=== PATIENT | female | born 1950 | race Caucasian/White ===

== ENCOUNTER 2022-03-23 21:43 | Inpatient (IN) ==
[2022-03-23] MEDS ORDERED: Aspirin 81 MG TAB.CHEW PO ONE (21:58)
[2022-03-23] MEDS ORDERED: *HR* Ticagrelor 90 MG TABLET PO ONE (22:01)
[2022-03-23] MEDS ORDERED: *HR* Heparin 5,000 UNIT/ML VIAL IVP ONE (22:02)
[2022-03-23 22:12] LABS: Basophils % 0.3 %; Eosinophils # 0.2 K/mcL (0.0-0.6); Eosinophils % 1.9 %; Hematocrit 36.7 % (35.3-44.9); Hemoglobin 11.8 g/dL (11.5-15.4); Immature Granulocytes % 0.4 % (0-4); Lymphocytes # 1.6 K/mcL (0.6-4.6); Lymphocytes % 15.6 %; Mean Corpuscular HGB Conc 32.2 g/dL (31.6-35.5); Mean Corpuscular Hemoglobin 29.8 pg (28.0-33.3); Mean Corpuscular Volume 92.7 fL (83.0-100.0); Mean Platelet Volume 8.7 fL (9.4-12.4); Monocytes # 0.9 K/mcL (0.0-1.3); Monocytes % 8.7 %; Neutrophils # 7.6 K/mcL (1.6-8.9); Platelet Count 372 K/mcL (140-400); Red Blood Count 3.96 M/mcL (3.82-4.97); Red Cell Distribution Width 13.3 % (11.5-14.5); Segmented Neutrophils % 73.1 %; White Blood Count 10.4 K/mcL (4.3-11.1)
[2022-03-23 22:19] LABS: INR 1.1; Prothrombin Time 12.8 Seconds (9.4-12.1)
[2022-03-23] MEDS ORDERED: *HR* Heparin 10,000 UNIT/10 ML VIAL ONE ×2 (22:21→23:01)
[2022-03-23] MEDS ORDERED: ISOVUE-370 200 ML INFUS..BTL ONE (22:21)
[2022-03-23] MEDS ORDERED: Nitroglycerin 1,000 MCG/5 ML VIAL IV ONE (22:21)
[2022-03-23] MEDS ORDERED: 0.9 % Sodium Chloride 2,000 ML ONE (22:21)
[2022-03-23] MEDS ORDERED: Heparin 1,000 UNITS/500 mL 1,000 ML ONE (22:21)
[2022-03-23 22:23] LABS: Heparin anti-factor XA UFH < 0.04 IU/mL (0.30-0.70)
[2022-03-23] MEDS ORDERED: *HR* FentaNYL (PF) 100 MCG/2 ML VIAL ONE ×2 (22:35→23:10)
[2022-03-23] MEDS ORDERED: *HR* Midazolam HCl 2 MG/2 ML VIAL ONE ×2 (22:35→23:11)
[2022-03-23 23:01] LABS: Alanine Aminotransferase 13 Units/L (7-52); Albumin 3.5 g/dL (3.5-5.7); Albumin/Globulin Ratio 1.1 (1.1-2.2); Alkaline Phosphatase 73 Units/L (34-104); Aspartate Amino Transferase 46 Units/L (13-39); BUN/Creatinine Ratio 22 (6-26); Bilirubin,Direct 0.1 mg/dL (0.0-0.2); Bilirubin,Indirect 0.3 mg/dL (0.0-1.0); Bilirubin,Total 0.4 mg/dL (0.3-1.0); Blood Urea Nitrogen 13 mg/dL (8-23); Calcium 8.8 mg/dL (8.6-10.3); Carbon Dioxide 26 mEq/L (23-29); Chloride 103 mEq/L (98-107); Globulin 3.2 g/dL (2.4-3.5); Glucose 120 mg/dL (70-105); Magnesium 1.8 mg/dL (1.6-2.6); Osmolality,Calculated 281 (280-300); Potassium 4.3 mEq/L (3.5-5.1); Sodium 135 mEq/L (136-145); Total Protein 6.7 g/dL (6.4-8.9); Troponin I 2.86 ng/mL (< 0.04); eGFR For African Americans > 60 (> 60); eGFR For Non-African Americans > 60 (> 60)
[2022-03-23] MEDS ORDERED: Perflutren Lipid Microsphere 1.3 ML in 0.9 % Sodium Chloride 8.7 ML IVP PRN (23:44)
[2022-03-24] MEDS ORDERED: *HR* HYDROcodone/Acet 7.5/325 mg TABLET PO PRN (00:01)
[2022-03-24] MEDS ORDERED: Morphine Sulfate 2 MG/ML SYRINGE IVP PRN (00:02)
[2022-03-24] MEDS ORDERED: *HR* OxyCODONE Immed Rel 5 MG TABLET PO PRN (00:05)
[2022-03-24] MEDS: Morphine Sulfate 2 MG/ML SYRINGE IVP PRN ×3 (00:37→18:40)
[2022-03-24 03:40] LABS: Basophils % 0.2 %; Eosinophils # 0.1 K/mcL (0.0-0.6); Eosinophils % 0.6 %; Hematocrit 32.7 % (35.3-44.9); Hemoglobin 10.5 g/dL (11.5-15.4); Immature Granulocytes % 0.3 % (0-4); Lymphocytes % 10.6 %; Mean Corpuscular HGB Conc 32.1 g/dL (31.6-35.5); Mean Corpuscular Hemoglobin 29.4 pg (28.0-33.3); Mean Corpuscular Volume 91.6 fL (83.0-100.0); Mean Platelet Volume 8.6 fL (9.4-12.4); Monocytes # 0.8 K/mcL (0.0-1.3); Monocytes % 8.7 %; Neutrophils # 7.7 K/mcL (1.6-8.9); Platelet Count 322 K/mcL (140-400); Red Blood Count 3.57 M/mcL (3.82-4.97); Red Cell Distribution Width 13.3 % (11.5-14.5); Segmented Neutrophils % 79.6 %; White Blood Count 9.6 K/mcL (4.3-11.1)
[2022-03-24 03:53] LABS: BUN/Creatinine Ratio 22 (6-26); Blood Urea Nitrogen 10 mg/dL (8-23); Calcium 8.3 mg/dL (8.6-10.3); Carbon Dioxide 25 mEq/L (23-29); Chloride 103 mEq/L (98-107); Chol/HDL Ratio 2.3 (0-4.9); Cholesterol 120 mg/dL (< 200); Glucose 129 mg/dL (70-105); HDL Cholesterol 53 mg/dL (40-59); LDL Cholesterol,Calculated 53 mg/dL (< 100); Osmolality,Calculated 279 (280-300); Sodium 134 mEq/L (136-145); Triglycerides 72 mg/dL (< 150); eGFR For African Americans > 60 (> 60); eGFR For Non-African Americans > 60 (> 60)
[2022-03-24] MEDS ORDERED: *HR* HYDROmorphone (PF) 1 MG/ML SYRINGE IVP ONE (05:24)
[2022-03-24] MEDS: Metoprolol XL (24 HR) Succ 50 MG TAB.ER.24H PO SCH (07:45)
[2022-03-24] MEDS: Aspirin 81 MG TAB.CHEW PO SCH (07:45)
[2022-03-24] MEDS: *HR* OxyCODONE Immed Rel 5 MG TABLET PO PRN ×3 (07:46→20:22)
[2022-03-24] MEDS: *HR* Ticagrelor 90 MG TABLET PO SCH ×2 (07:46→20:23)
[2022-03-24] MEDS ORDERED: Nitroglycerin 0.4 MG TAB.SUBL SL PRN (07:59)
[2022-03-24] MEDS: ARIPiprazole 5 MG TABLET PO SCH (10:33)
[2022-03-24] MEDS: Budesonide/Formoterol 80/4.5 1 PUFF INH IH SCH (11:30)
[2022-03-24] MEDS ORDERED: Melatonin 3 MG TABLET PO SCH (21:00)
[2022-03-25] MEDS: *HR* OxyCODONE Immed Rel 5 MG TABLET PO PRN ×2 (02:24→09:44)
[2022-03-25] MEDS: Morphine Sulfate 2 MG/ML SYRINGE IVP PRN (04:27)
[2022-03-25] MEDS: Budesonide/Formoterol 80/4.5 1 PUFF INH IH SCH (08:20)
[2022-03-25] MEDS ORDERED: ALPRAZolam 0.5 MG TABLET PO ONE (09:23)
[2022-03-25] MEDS: Metoprolol XL (24 HR) Succ 50 MG TAB.ER.24H PO SCH (09:44)
[2022-03-25] MEDS: ARIPiprazole 5 MG TABLET PO SCH (09:44)
[2022-03-25] MEDS: Aspirin 81 MG TAB.CHEW PO SCH (09:44)
[2022-03-25] MEDS: *HR* Ticagrelor 90 MG TABLET PO SCH (09:44)
[2022-03-25] MEDS ORDERED: Morphine Sulfate 2 MG/ML SYRINGE IVP PRN (10:56)
[2022-03-25] MEDS ORDERED: *HR* OxyCODONE Immed Rel 5 MG TABLET PO PRN (10:56)
[2022-03-25] MEDS ORDERED: Nitroglycerin 0.4 MG TAB.SUBL SL PRN (10:56)
[2022-03-25] MEDS ORDERED: Metoprolol XL (24 HR) Succ 25 MG TAB.ER.24H PO ONE (14:45)
[2022-03-25] MEDS ORDERED: ALPRAZolam 0.5 MG TABLET PO PRN (17:00)
[2022-03-25] MEDS: ALPRAZolam 0.5 MG TABLET PO PRN (20:51)
[2022-03-25] MEDS: Apixaban 5 MG TABLET PO SCH (20:52)
[2022-03-25] MEDS ORDERED: *HR* Ticagrelor 90 MG TABLET PO SCH ×2 (21:00)
[2022-03-25] MEDS ORDERED: Melatonin 3 MG TABLET PO SCH (21:00)
[2022-03-26] MEDS: Apixaban 5 MG TABLET PO SCH (08:39)
[2022-03-26] MEDS: ALPRAZolam 0.5 MG TABLET PO PRN (08:43)
[2022-03-26] MEDS ORDERED: ARIPiprazole 5 MG TABLET PO SCH (09:00)
[2022-03-26] MEDS ORDERED: Metoprolol XL (24 HR) Succ 50 MG TAB.ER.24H PO SCH ×2 (09:00)
[2022-03-26] MEDS ORDERED: Aspirin 81 MG TAB.CHEW PO SCH (09:00)
[2022-03-26] MEDS ORDERED: Budesonide/Formoterol 80/4.5 1 PUFF INH IH SCH (10:00)
[2022-03-26 11:37] VITALS: BP 123/41; PULSE 68; TEMP 97.9; O2SAT 98
== END 2022-03-26 13:36 | disposition home or self-care (01) | DRG 247 ==
LOC: EMEROOARM 21:43 → ICNU 21:43 → 2NNU 03-25 12:58
PROVIDERS: ADMIT Internal Medicine Cardiovascular Disease; ATTEND Internal Medicine Cardiovascular Disease

== ENCOUNTER 2022-04-25 15:07 | Inpatient (IN) ==
[2022-04-25] MEDS ORDERED: Ondansetron 4 MG/2 ML VIAL IVP PRN (16:52)
[2022-04-25] MEDS ORDERED: Naloxone 0.4 MG/ML INJ IVP PRN (16:52)
[2022-04-25 17:41] LABS: Basophils % 0.4 %; Eosinophils # 0.4 K/mcL (0.0-0.6); Hematocrit 28.3 % (35.3-44.9); Hemoglobin 8.7 g/dL (11.5-15.4); Immature Granulocytes % 0.7 % (0-4); Lymphocytes # 1.5 K/mcL (0.6-4.6); Lymphocytes % 20.3 %; Mean Corpuscular HGB Conc 30.7 g/dL (31.6-35.5); Mean Corpuscular Hemoglobin 29.1 pg (28.0-33.3); Mean Corpuscular Volume 94.6 fL (83.0-100.0); Mean Platelet Volume 8.6 fL (9.4-12.4); Monocytes # 0.6 K/mcL (0.0-1.3); Monocytes % 8.6 %; Neutrophils # 4.6 K/mcL (1.6-8.9); Platelet Count 362 K/mcL (140-400); Red Blood Count 2.99 M/mcL (3.82-4.97); Red Cell Distribution Width 14.6 % (11.5-14.5); White Blood Count 7.1 K/mcL (4.3-11.1)
[2022-04-25 17:45] LABS: VBG HCO3 26 mEq/L (21-27); VBG PCO2 45 mmHg (41-51); VBG PH 7.38 pH Units (7.32-7.42); VBG PO2 47 mmHg (25-50)
[2022-04-25 17:49] LABS: INR 1.4; Prothrombin Time 15.8 Seconds (9.4-12.1)
[2022-04-25 17:57] LABS: BUN/Creatinine Ratio 32 (6-26); Blood Urea Nitrogen 24 mg/dL (8-23); Calcium 8.1 mg/dL (8.6-10.3); Carbon Dioxide 28 mEq/L (23-29); Chloride 100 mEq/L (98-107); Glucose 106 mg/dL (70-105); Osmolality,Calculated 284 (280-300); Potassium 3.4 mEq/L (3.5-5.1); Sodium 135 mEq/L (136-145); eGFR For African Americans > 60 (> 60); eGFR For Non-African Americans > 60 (> 60)
[2022-04-25 18:00] LABS: Albumin 2.9 g/dL (3.5-5.7); Bilirubin,Direct 0.1 mg/dL (0.0-0.2); Bilirubin,Indirect 0.3 mg/dL (0.0-1.0); Bilirubin,Total 0.4 mg/dL (0.3-1.0); Globulin 2.8 g/dL (2.4-3.5); Total Protein 5.7 g/dL (6.4-8.9)
[2022-04-25] MEDS ORDERED: *HR* Heparin 5,000 UNIT/ML VIAL IVP ONE (18:04)
[2022-04-25] MEDS ORDERED: *HR* Heparin 5,000 UNIT/ML VIAL IVP PRN (18:04)
[2022-04-25 18:12] LABS: Thyroid Stimulating Hormone 4.058 mcIU/mL (0.340-5.600)
[2022-04-25] MEDS ORDERED: Heparin 25,000UNIT/250ML 1/2NS 25,000 UNIT/250 ML IV.SOLN IVC SCH (18:15)
[2022-04-25] MEDS: *HR* HYDROcodone/Acet 7.5/325 mg TABLET PO PRN (18:34)
[2022-04-25 19:24] LABS: Activated Partial Thrombo Time 31.5 Seconds (26.0-36.0)
[2022-04-25 19:26] LABS: Heparin anti-factor XA UFH 1.19 IU/mL (0.30-0.70)
[2022-04-25] MEDS: Heparin 25,000UNIT/250ML 1/2NS 25,000 UNIT/250 ML IV.SOLN IVC SCH (20:49)
[2022-04-25] MEDS: Furosemide 40 MG/4 ML VIAL IVP SCH (21:01)
[2022-04-26] MEDS: *HR* HYDROcodone/Acet 7.5/325 mg TABLET PO PRN ×4 (01:09→21:14)
[2022-04-26] MEDS: *HR* Metoprolol 5 MG/5 ML VIAL IVP PRN ×2 (02:05→06:51)
[2022-04-26] MEDS: Acetaminophen 325 MG TABLET PO PRN (04:24)
[2022-04-26 04:46] LABS: Basophils # 0.1 K/mcL (0.0-0.2); Basophils % 0.7 %; Eosinophils # 0.5 K/mcL (0.0-0.6); Eosinophils % 6.6 %; Hemoglobin 8.3 g/dL (11.5-15.4); Immature Granulocytes % 0.4 % (0-4); Lymphocytes # 2.1 K/mcL (0.6-4.6); Lymphocytes % 30.3 %; Mean Corpuscular HGB Conc 30.7 g/dL (31.6-35.5); Mean Corpuscular Hemoglobin 29.2 pg (28.0-33.3); Mean Corpuscular Volume 95.1 fL (83.0-100.0); Mean Platelet Volume 8.6 fL (9.4-12.4); Monocytes # 0.6 K/mcL (0.0-1.3); Monocytes % 9.2 %; Neutrophils # 3.7 K/mcL (1.6-8.9); Nucleated Red Blood Cells 0.3 /100 WBC (0); Platelet Count 350 K/mcL (140-400); Red Blood Count 2.84 M/mcL (3.82-4.97); Red Cell Distribution Width 14.5 % (11.5-14.5); Segmented Neutrophils % 52.8 %
[2022-04-26 05:10] LABS: % Iron Saturation 10 % (15-50); BUN/Creatinine Ratio 33 (6-26); Blood Urea Nitrogen 18 mg/dL (8-23); Carbon Dioxide 29 mEq/L (23-29); Chloride 101 mEq/L (98-107); Glucose 102 mg/dL (70-105); Iron 33 mcg/dL (50-170); Magnesium 1.9 mg/dL (1.6-2.6); Osmolality,Calculated 288 (280-300); Potassium 3.3 mEq/L (3.5-5.1); Sodium 138 mEq/L (136-145); Transferrin 243 mg/dL (203-362); eGFR For African Americans > 60 (> 60); eGFR For Non-African Americans > 60 (> 60)
[2022-04-26 05:24] LABS: Ferritin 31 ng/mL (10-120)
[2022-04-26 05:30] LABS: Folate 5.8 ng/mL (3.0-16.0)
[2022-04-26] MEDS ORDERED: DilTIAZem 50 MG in 0.9 % Sodium Chloride 40 ML IVC SCH (08:00)
[2022-04-26] MEDS: Furosemide 40 MG/4 ML VIAL IVP SCH ×2 (08:46→21:15)
[2022-04-26] MEDS: Cyanocobalamin (B-12) 1,000 MCG/ML VIAL SQ SCH (09:48)
[2022-04-26] MEDS: Heparin 25,000UNIT/250ML 1/2NS 25,000 UNIT/250 ML IV.SOLN IVC SCH (12:13)
[2022-04-26] MEDS: Iron Sucrose Complex 250 MG in 0.9 % Sodium Chloride 250 ML IVPB SCH (13:02)
[2022-04-26] MEDS ORDERED: Nitroglycerin 0.4 MG TAB.SUBL SL PRN (15:10)
[2022-04-26] MEDS ORDERED: ARIPiprazole 10 MG TABLET PO SCH (15:15)
[2022-04-26] MEDS ORDERED: Metoprolol XL (24 HR) Succ 50 MG TAB.ER.24H PO SCH (16:00)
[2022-04-26] MEDS: DilTIAZem 50 MG/50 ML IV.SOLN IVC SCH ×2 (17:13→22:13)
[2022-04-26] MEDS ORDERED: *HR* Metoprolol 5 MG/5 ML VIAL IVP ONE (22:30)
[2022-04-27] MEDS: Acetaminophen 325 MG TABLET PO PRN (00:04)
[2022-04-27] MEDS: Heparin 25,000UNIT/250ML 1/2NS 25,000 UNIT/250 ML IV.SOLN IVC SCH ×2 (00:07→15:31)
[2022-04-27] MEDS: *HR* HYDROcodone/Acet 7.5/325 mg TABLET PO PRN ×2 (03:14→10:31)
[2022-04-27 06:31] LABS: Basophils % 0.5 %; Eosinophils # 0.6 K/mcL (0.0-0.6); Eosinophils % 8.2 %; Hematocrit 27.4 % (35.3-44.9); Hemoglobin 8.4 g/dL (11.5-15.4); Immature Granulocytes % 0.5 % (0-4); Lymphocytes % 27.7 %; Mean Corpuscular HGB Conc 30.7 g/dL (31.6-35.5); Mean Corpuscular Volume 94.5 fL (83.0-100.0); Mean Platelet Volume 8.8 fL (9.4-12.4); Monocytes # 0.7 K/mcL (0.0-1.3); Monocytes % 8.9 %; Neutrophils # 3.9 K/mcL (1.6-8.9); Platelet Count 370 K/mcL (140-400); Red Cell Distribution Width 14.8 % (11.5-14.5); Segmented Neutrophils % 54.2 %; White Blood Count 7.3 K/mcL (4.3-11.1)
[2022-04-27 06:51] LABS: BUN/Creatinine Ratio 21 (6-26); Blood Urea Nitrogen 11 mg/dL (8-23); Calcium 8.1 mg/dL (8.6-10.3); Carbon Dioxide 33 mEq/L (23-29); Chloride 99 mEq/L (98-107); Glucose 124 mg/dL (70-105); Magnesium 1.7 mg/dL (1.6-2.6); Osmolality,Calculated 285 (280-300); Potassium 3.4 mEq/L (3.5-5.1); Sodium 137 mEq/L (136-145); eGFR For African Americans > 60 (> 60); eGFR For Non-African Americans > 60 (> 60)
[2022-04-27] MEDS: Metoprolol XL (24 HR) Succ 50 MG TAB.ER.24H PO SCH (07:56)
[2022-04-27] MEDS: ARIPiprazole 10 MG TABLET PO SCH (07:56)
[2022-04-27] MEDS: Cyanocobalamin (B-12) 1,000 MCG/ML VIAL SQ SCH (07:57)
[2022-04-27] MEDS: Furosemide 40 MG/4 ML VIAL IVP SCH ×2 (07:57→19:59)
[2022-04-27] MEDS ORDERED: Metoprolol XL (24 HR) Succ 50 MG TAB.ER.24H PO SCH (09:00)
[2022-04-27] MEDS ORDERED: *HR* Digoxin 0.5 MG/2 ML AMPUL IVP ONE (09:09)
[2022-04-27] MEDS: Iron Sucrose Complex 250 MG in 0.9 % Sodium Chloride 250 ML IVPB SCH (11:19)
[2022-04-27] MEDS ORDERED: *HR* HYDROcodone/Acet 7.5/325 mg TABLET PO SCH (12:00)
[2022-04-27] MEDS ORDERED: DilTIAZem CD (24hr) 120 MG CAP.ER.24H PO ONE (12:58)
[2022-04-27] MEDS: *HR* HYDROcodone/Acet 7.5/325 mg TABLET PO SCH ×2 (17:37→23:05)
[2022-04-28 03:33] LABS: Hematocrit 29.2 % (35.3-44.9); Hemoglobin 8.9 g/dL (11.5-15.4)
[2022-04-28 03:57] LABS: BUN/Creatinine Ratio 21 (6-26); Blood Urea Nitrogen 13 mg/dL (8-23); Calcium 8.3 mg/dL (8.6-10.3); Carbon Dioxide 31 mEq/L (23-29); Chloride 99 mEq/L (98-107); Glucose 112 mg/dL (70-105); Magnesium 1.8 mg/dL (1.6-2.6); Osmolality,Calculated 285 (280-300); Phosphorous 3.8 mg/dL (2.7-4.5); Potassium 3.6 mEq/L (3.5-5.1); Sodium 137 mEq/L (136-145); eGFR For African Americans > 60 (> 60); eGFR For Non-African Americans > 60 (> 60)
[2022-04-28] MEDS: Acetaminophen 325 MG TABLET PO PRN ×2 (04:04→19:58)
[2022-04-28] MEDS: *HR* HYDROcodone/Acet 7.5/325 mg TABLET PO SCH ×4 (05:08→23:12)
[2022-04-28] MEDS: Heparin 25,000UNIT/250ML 1/2NS 25,000 UNIT/250 ML IV.SOLN IVC SCH ×2 (07:45→10:44)
[2022-04-28] MEDS ORDERED: Iopamidol - 370 500 ML MLS IVP ONE (08:39)
[2022-04-28] MEDS: Metoprolol XL (24 HR) Succ 50 MG TAB.ER.24H PO SCH (08:56)
[2022-04-28] MEDS: Cyanocobalamin (B-12) 1,000 MCG/ML VIAL SQ SCH (08:56)
[2022-04-28] MEDS: Furosemide 40 MG/4 ML VIAL IVP SCH ×2 (08:56→19:59)
[2022-04-28] MEDS ORDERED: Perflutren Lipid Microsphere 1.3 ML in 0.9 % Sodium Chloride 8.7 ML IVP PRN (09:42)
[2022-04-28] MEDS: *HR* Amiodarone 200 MG TABLET PO SCH ×2 (10:43→19:59)
[2022-04-28 12:05] LABS: Heparin anti-factor XA UFH 0.38 IU/mL (0.30-0.70)
[2022-04-28 12:08] LABS: Activated Partial Thrombo Time 57.9 Seconds (26.0-36.0)
[2022-04-28] MEDS: *HR* Heparin 5,000 UNIT/ML VIAL IVP PRN ×2 (12:57→23:06)
[2022-04-28] MEDS: Nystatin POWDER 30 GM BOTTLE TP SCH ×2 (16:45→20:00)
[2022-04-28] MEDS ORDERED: *HR* Warfarin 2.5 MG TABLET PO ONE (18:00)
[2022-04-28] MEDS: Warfarin perPT PO SCH (18:35)
[2022-04-29] MEDS: Heparin 25,000UNIT/250ML 1/2NS 25,000 UNIT/250 ML IV.SOLN IVC SCH ×2 (03:00→20:53)
[2022-04-29] MEDS: *HR* HYDROcodone/Acet 7.5/325 mg TABLET PO SCH ×4 (05:11→23:48)
[2022-04-29 05:46] LABS: Basophils % 0.4 %; Eosinophils # 0.6 K/mcL (0.0-0.6); Hematocrit 28.7 % (35.3-44.9); Hemoglobin 8.8 g/dL (11.5-15.4); Immature Granulocytes % 0.6 % (0-4); Lymphocytes # 2.3 K/mcL (0.6-4.6); Lymphocytes % 28.3 %; Mean Corpuscular HGB Conc 30.7 g/dL (31.6-35.5); Mean Corpuscular Hemoglobin 29.5 pg (28.0-33.3); Mean Corpuscular Volume 96.3 fL (83.0-100.0); Mean Platelet Volume 8.7 fL (9.4-12.4); Monocytes # 0.6 K/mcL (0.0-1.3); Monocytes % 7.6 %; Neutrophils # 4.6 K/mcL (1.6-8.9); Platelet Count 363 K/mcL (140-400); Red Blood Count 2.98 M/mcL (3.82-4.97); Red Cell Distribution Width 15.1 % (11.5-14.5); Segmented Neutrophils % 56.1 %; White Blood Count 8.2 K/mcL (4.3-11.1)
[2022-04-29 05:56] LABS: INR 1.3; Prothrombin Time 14.2 Seconds (9.4-12.1)
[2022-04-29 06:20] LABS: BUN/Creatinine Ratio 25 (6-26); Blood Urea Nitrogen 16 mg/dL (8-23); Calcium 8.5 mg/dL (8.6-10.3); Carbon Dioxide 32 mEq/L (23-29); Chloride 96 mEq/L (98-107); Glucose 118 mg/dL (70-105); Magnesium 1.6 mg/dL (1.6-2.6); Osmolality,Calculated 282 (280-300); Phosphorous 4.3 mg/dL (2.7-4.5); Potassium 3.6 mEq/L (3.5-5.1); Sodium 135 mEq/L (136-145); eGFR For African Americans > 60 (> 60); eGFR For Non-African Americans > 60 (> 60)
[2022-04-29] MEDS: *HR* Amiodarone 200 MG TABLET PO SCH ×2 (08:22→20:52)
[2022-04-29] MEDS: ARIPiprazole 10 MG TABLET PO SCH (08:22)
[2022-04-29] MEDS: Metoprolol XL (24 HR) Succ 50 MG TAB.ER.24H PO SCH (08:23)
[2022-04-29] MEDS: Furosemide 40 MG/4 ML VIAL IVP SCH ×3 (08:30→20:53)
[2022-04-29] MEDS: Nystatin POWDER 30 GM BOTTLE TP SCH ×3 (10:09→20:56)
[2022-04-29] MEDS ORDERED: Iron Sucrose Complex 400 MG in 0.9 % Sodium Chloride 250 ML IVPB ONE (13:37)
[2022-04-29] MEDS: *HR* Heparin 5,000 UNIT/ML VIAL IVP PRN (14:06)
[2022-04-29] MEDS: Warfarin perPT PO SCH (17:52)
[2022-04-29] MEDS ORDERED: *HR* Warfarin 2.5 MG TABLET PO ONE (18:00)
[2022-04-30 03:05] LABS: Basophils % 0.5 %; Eosinophils # 0.5 K/mcL (0.0-0.6); Eosinophils % 6.1 %; Hematocrit 29.9 % (35.3-44.9); Hemoglobin 9.1 g/dL (11.5-15.4); Immature Granulocytes % 0.6 % (0-4); Lymphocytes % 23.8 %; Mean Corpuscular HGB Conc 30.4 g/dL (31.6-35.5); Mean Corpuscular Hemoglobin 29.4 pg (28.0-33.3); Mean Corpuscular Volume 96.8 fL (83.0-100.0); Mean Platelet Volume 8.6 fL (9.4-12.4); Monocytes # 0.7 K/mcL (0.0-1.3); Monocytes % 7.7 %; Neutrophils # 5.2 K/mcL (1.6-8.9); Platelet Count 338 K/mcL (140-400); Red Blood Count 3.09 M/mcL (3.82-4.97); Red Cell Distribution Width 15.4 % (11.5-14.5); Segmented Neutrophils % 61.3 %; White Blood Count 8.5 K/mcL (4.3-11.1)
[2022-04-30 03:18] LABS: BUN/Creatinine Ratio 29 (6-26); Blood Urea Nitrogen 22 mg/dL (8-23); Calcium 8.4 mg/dL (8.6-10.3); Carbon Dioxide 33 mEq/L (23-29); Chloride 95 mEq/L (98-107); Glucose 109 mg/dL (70-105); INR 1.2; Magnesium 1.6 mg/dL (1.6-2.6); Osmolality,Calculated 284 (280-300); Phosphorous 4.4 mg/dL (2.7-4.5); Prothrombin Time 13.5 Seconds (9.4-12.1); Sodium 135 mEq/L (136-145); eGFR For African Americans > 60 (> 60); eGFR For Non-African Americans > 60 (> 60)
[2022-04-30 03:20] LABS: Activated Partial Thrombo Time 89.4 Seconds (26.0-36.0)
[2022-04-30] MEDS: *HR* HYDROcodone/Acet 7.5/325 mg TABLET PO SCH ×3 (05:39→17:42)
[2022-04-30] MEDS: *HR* Amiodarone 200 MG TABLET PO SCH ×2 (10:12→20:51)
[2022-04-30] MEDS: Furosemide 40 MG/4 ML VIAL IVP SCH (10:14)
[2022-04-30] MEDS: Metoprolol XL (24 HR) Succ 50 MG TAB.ER.24H PO SCH (10:15)
[2022-04-30] MEDS: Nystatin POWDER 30 GM BOTTLE TP SCH ×3 (10:15→20:52)
[2022-04-30] MEDS: Heparin 25,000UNIT/250ML 1/2NS 25,000 UNIT/250 ML IV.SOLN IVC SCH (12:40)
[2022-04-30] MEDS: Furosemide 20 MG TABLET PO SCH (17:42)
[2022-04-30] MEDS: Warfarin perPT PO SCH (17:44)
[2022-04-30] MEDS ORDERED: *HR* Warfarin 5 MG TABLET PO ONE (18:00)
[2022-05-01] MEDS: *HR* HYDROcodone/Acet 7.5/325 mg TABLET PO SCH ×3 (00:45→11:42)
[2022-05-01 04:02] LABS: INR 1.2; Prothrombin Time 13.7 Seconds (9.4-12.1)
[2022-05-01 04:05] LABS: Activated Partial Thrombo Time 67.6 Seconds (26.0-36.0)
[2022-05-01] MEDS: Heparin 25,000UNIT/250ML 1/2NS 25,000 UNIT/250 ML IV.SOLN IVC SCH (04:13)
[2022-05-01 04:45] LABS: BUN/Creatinine Ratio 31 (6-26); Blood Urea Nitrogen 21 mg/dL (8-23); Calcium 8.3 mg/dL (8.6-10.3); Carbon Dioxide 32 mEq/L (23-29); Chloride 96 mEq/L (98-107); Glucose 115 mg/dL (70-105); Magnesium 1.6 mg/dL (1.6-2.6); Osmolality,Calculated 282 (280-300); Phosphorous 4.4 mg/dL (2.7-4.5); Potassium 3.8 mEq/L (3.5-5.1); Sodium 134 mEq/L (136-145); eGFR For African Americans > 60 (> 60); eGFR For Non-African Americans > 60 (> 60)
[2022-05-01] MEDS: ARIPiprazole 10 MG TABLET PO SCH (09:49)
[2022-05-01] MEDS: Acetaminophen 325 MG TABLET PO PRN (09:49)
[2022-05-01] MEDS: Metoprolol XL (24 HR) Succ 50 MG TAB.ER.24H PO SCH (09:49)
[2022-05-01] MEDS: *HR* Amiodarone 200 MG TABLET PO SCH (09:50)
[2022-05-01] MEDS: Nystatin POWDER 30 GM BOTTLE TP SCH (09:51)
[2022-05-01] MEDS: Furosemide 20 MG TABLET PO SCH (09:52)
[2022-05-01] MEDS ORDERED: *HR* Enoxaparin 150 MG/ML SYRINGE SQ SCH (11:00)
[2022-05-01 12:07] VITALS: BP 130/75; PULSE 63; TEMP 97.7; O2SAT 93
[2022-05-01] MEDS ORDERED: *HR* Warfarin 5 MG TABLET PO ONE (18:00)
== END 2022-05-01 15:59 | disposition other institution (70) | DRG 291 ==
LOC: 3ANU → SUATTDRO 15:48
PROVIDERS: ADMIT Pharmacist; ATTEND Internal Medicine